=== PATIENT | male | born 1980 | race Caucasian/White ===

== ENCOUNTER 2023-12-23 17:39 | Observation (INO) | payer OTHER, BC, SELFPAY ==
[2023-12-23] VITALS (12 sets, daily range): BP systolic 116–155; BP diastolic 66–95; PULSE 83–111; RESP 14–22; TEMP 36.2–37.3; O2SAT 97–100; BMI 28.0; BMI 30.4
--- NOTE | 2023-12-23 | OP_ITS ---
OPERATION DATE: 12/23/2023 PREOPERATIVE DIAGNOSIS: Acute appendicitis. POSTOPERATIVE DIAGNOSIS: Gangrenous appendicitis with localized peritonitis. No abscess. PROCEDURE: Laparoscopic appendectomy. SURGEON: Pepe Martinez M.D. WINDOW TREATMENT INSTALLER: Shauna Hensley ANESTHESIA: General endotracheal. ESTIMATED BLOOD LOSS: Less than 15 mL. INDICATIONS AND CONSENT: Patient is a 43-year-old male with a 24 hour history of abdominal pain, localized into the right lower quadrant with right lower quadrant peritoneal signs, leukocytosis and CT scan with evidence of inflamed dilated appendix and fecalith. Indications, risks, benefits, alternatives of proceeding with laparoscopic appendectomy were explained extensively to the patient, including risks of bleeding, infection, bowel injury, appendiceal stump leak, blood clot, pulmonary embolus, heart attack, anesthetic complications, need for further surgery or open procedure. All of his questions were answered. Informed consent was obtained. PROCEDURE: Patient brought to the operating room, placed in the supine position. General anesthesia was induced. Lomeli catheter was inserted using sterile technique. The abdomen was prepped and draped in the usual sterile fashion. A supraumbilical incision was made with a scalpel blade and carried down through subcutaneous tissue using blunt dissection. The fascia was grasped and incised. Two 0 Vicryl stay sutures were placed on either side of the midline fascia. Urmila trocar was then inserted and secured using the stay sutures. The abdomen was then insufflated with carbon dioxide to a pressure of 15 mm/Hg. The scope was inserted and the abdomen was visualized. Patient was placed in the Trendelenburg position with the right side up. There was noted to be inflammation of the appendix with some exudate and free fluid in the right lower quadrant. No abscess. Two 5 mm ports were then placed; one in the left lower quadrant, one in the suprapubic area, both under direct visualization. The appendix was then mobilized. Using blunt dissection, a window was created at the base of the mesoappendix, in the avascular plane with the [place] grasper. An endoscopic stapler, purple, 45 mm length was then used to divide the appendix at its base. There was good hemostasis from the staple line. The mesoappendix was then divided with a reload of the vascular medium load, the gold load, 45 mm in length. The appendix was then brought out in an Endocatch bag through the supraumbilical port site. The fascia had to be slightly enlarged in order to remove the appendix. The abdomen was then copiously irrigated with 3 liters of saline until clear. The suture lines were inspected and noted to be hemostatic. All port sites were examined upon withdrawal of the ports. There was noted to be good hemostasis. The umbilical port site fascia was then closed with a 0 Vicryl figure of eight suture. All port sites were infiltrated with 0.5% Marcaine. The skin was then closed with interrupted 4-0 subcuticular Monocryl sutures and skin glue. Sterile pressure dressings were applied as well as an abdominal binder. Sponge and needle counts were correct x2 per nursing personnel. Patient tolerated the procedure well, was extubated and sent to recovery room in good condition. CC: Connie Samuel
--- NOTE | 2023-12-23 | HP_ITS ---
Date: 12/23/2023 CHIEF COMPLAINT: Abdominal pain. HISTORY OF PRESENT ILLNESS: Patient is a 43-year-old male with no known medical problems, who reports a 24 hour history of abdominal pain, kind of in the diffuse mid abdomen, worse with activities or movement. He does have some constipation/anorexia. Denies fevers, chills, night sweats. Has had no nausea or vomiting. No diarrhea. No dysuria, frequency, urgency or hematuria. He has been on no medications or rhki-ksk-cbajdti medications. He has had no previous abdominal surgery. Workup in the emergency room revealed leukocytosis with a white blood cell count of 21,000. Subsequently, underwent a CT scan of the abdomen and pelvis which revealed a dilated appendix with inflammatory stranding and fecalith. No evidence of free air or perforation. SOCIAL HISTORY: Patient does smoke tobacco daily. Denies illicit drug use. ALLERGIES: He has no known drug allergies. MEDICATIONS: On no medications or gzul-ldh-inweqiq medications. PAST SURGICAL HISTORY: Has had no previous surgical operations. FAMILY HISTORY: Noncontributory. REVIEW OF SYSTEMS: Ten system review of systems is negative for recent weight loss or weight gain. Denies increased fatigue or light-headedness. Has had no earache or tinnitus. No sinus congestion. No sore throat or hoarseness. No chest pain, palpitations or syncope. No chronic cough, shortness of breath or hemoptysis. No dysuria, frequency, urgency or hematuria. No headaches, seizures or tremors. No easy bruising or bleeding. No heat or cold intolerance. No polydipsia, polyphagia or polyuria. PHYSICAL EXAM: VITAL SIGNS: His temperature is 99.2. Blood pressure is 142/76. Pulse is 83 and regular. Respiratory rate is 18. O2 saturation is 97% on room air. GENERAL: In general, he is a well developed, well nourished male, in mild distress secondary to abdominal pain. HEENT: Normocephalic, atraumatic. Sclerae anicteric. Conjunctiva not injected. Oral mucosa is moist without lesions. NECK: Supple. There is no adenopathy, thyromegaly or JVD. LUNGS: Clear bilaterally. CARDIAC EXAM: Regular rhythm and rate without appreciable murmurs, rubs or gallops. ABDOMEN: Slightly distended. There are positive bowel sounds. It is tender in the right lower quadrant with right lower quadrant peritoneal signs. No masses, hepatosplenomegaly or hernias. No CVA tenderness. SKIN: Warm and dry without lesions, rashes or ulcers. NEURO EXAM: Non-focal. Non-lateralizing. Patient is awake, alert, oriented with appropriate affect. LABORATORY DATA: Electrolytes are unremarkable. He is mildly dehydrated with a BUN of 22 and a creatinine of 1.4. IMAGING: CT scan images were personally reviewed. ASSESSMENT: A 43-year-old male with 24 hour history of abdominal pain localized to the right lower quadrant with right lower quadrant peritoneal signs, leukocytosis and CT scan with dilated, inflamed appendix with a fecalith. PLAN: Indications, risks, benefits, alternatives of proceeding with laparoscopic appendectomy explained extensively to the patient, including risks of bleeding, infection, bowel injury, appendiceal stump leak, blood clot, pulmonary embolus, heart attack, anesthetic complications, need for further surgery or open procedure. All of his questions were answered, informed consent was obtained. CC: Patient?s family physician BENY
--- NOTE | 2023-12-23 18:37 | CT_ITS ---
The [address] [address] Patient Name: NEHA PALACIO MRN: [id number] date: 1980 Sex: M Assigned Patient Location: ER Current Patient Location: [facility] Accession/Order Number: [id number] Exam Date: 12/23/2023 19:00 Report Date: 12/23/2023 19:22 At the request of: STAS SIDDIQI Procedure: CT abdomen pelvis wo con EXAM: CT scan of the abdomen and pelvis without contrast. Dose reduction technique used: Automated exposure control and/or adjustment of the mA and/or kV according to patient size and/or use of iterative reconstruction technique. REASON FOR EXAM: abdominal pain COMPARISON: None FINDINGS: Enlarged appendix measuring up to 13 mm. Appendicolith. Prominent periappendiceal fat stranding and small amount of fluid. No periappendiceal extraluminal gas or fluid collections. Possible biliary sludge or cholelithiasis. Diffuse hepatic steatosis. No renal, ureteral or bladder calculi. No hydronephrosis. No free fluid in the abdomen or pelvis. No free intraperitoneal air. No dilated or thickened loops of small bowel or colon. Liver, pancreas, spleen, bilateral kidneys, and bilateral adrenal glands are otherwise unremarkable within the limitations of noncontrast CT. No lymphadenopathy in the abdomen or pelvis. Remainder unremarkable. CT/CT abdomen pelvis wo con IMPRESSION: 1. Acute appendicitis. 2. Diffuse hepatic steatosis. 3. Possible biliary sludge or cholelithiasis. Electronically authenticated by: KATH HEBERT Date: 12/23/2023 19:22
--- NOTE | 2023-12-23 18:38 | ED_ITS ---
HPI - Abdominal Pain General Chief Complaint: Abdominal Pain Stated Complaint: Constipation, Abdominal Pain Time Seen by Provider: 12/23/23 18:30 Source: patient Mode of arrival: walk-in Limitations: no limitations History of Present Illness HPI narrative: Abdominal pain started last night. Some nausea but no vomiting. Decreased BMs. Last BM was noon yesterday. No fever or chills. No diarrhea. No flank pain or ba ck pain. No prior abdominal surgeries. Has never been evaluated by GI. he had similar last year and diagnosed with constipation, given Miralax and it went away . Related Data Home Medications Medication Instructions Recorded Confirmed No Known Home Medications 12/23/23 12/23/23 Allergies Allergy/AdvReac Type Severity Reaction Status Date / Time No Known Drug Allergies Allergy Verified 12/23/23 17:45 PFSH PFSH Social History Smoking status: Heavy tobacco smoker Exam Narrative Exam Narrative: Nurses notes and vital signs reviewed and patient is not hypoxic. afebrile General: Well-appearing and in no apparent distress. Skin: Warm, dry, no pallor noted. No rash. Eye: Pupils are equal, round and EOMI. No scleral icterus. Ears, Nose, Mouth, and Throat: Oral mucosa is moist Cardiovascular: Regular Rate and Rhythm without murmur, gallop or rub. Respiratory: No accessory muscle use or respiratory distress. Lungs are clear to auscultation, no wheezing, rales or rhonchi Back: No CVA tenderness Musculoskeletal: normal ROM GI: Abdomen is soft, non-distended. Normal bowel sounds. No masses appreciated. Mild diffuse tenderness to palpation. No rebound, guarding, or rigidity noted. Neurological: A&O x4. No cranial nerve dysfunction observed. No truncal ataxia. Moves all extremities. Sensation intact. Psychiatric: Cooperative and interactive. Normal mood and affect. Constitutional Vital Signs, click to edit/add: Last Vital Signs Temp 97.9 F 12/23/23 17:41 Pulse 95 H 12/23/23 17:41 Resp 20 12/23/23 17:41 BP 155/95 H 12/23/23 17:41 Pulse Ox 98 12/23/23 17:41 O2 Del Method Room Air 12/23/23 17:41 Course Vital Signs Vital signs: Vital Signs Temperature 97.9 F 12/23/23 17:41 Pulse Rate 95 H 12/23/23 17:41 Respiratory Rate 20 12/23/23 17:41 Blood Pressure 155/95 H 12/23/23 17:41 Pulse Oximetry 98 12/23/23 17:41 Oxygen Delivery Method Room Air 12/23/23 17:41 Temperature 97.9 F 12/23/23 17:41 Pulse Rate 95 H 12/23/23 17:41 Respiratory Rate 20 12/23/23 17:41 Blood Pressure 155/95 H 12/23/23 17:41 Pulse Oximetry 98 12/23/23 17:41 Oxygen Delivery Method Room Air 12/23/23 17:41 MDM - Abdominal Pain MDM Narrative Medical decision making narrative: Peripheral IV established and blood drawn and sent for testing. The patient was ordered to receive IV Toradol and IV Zofran. He was also given normal saline IV fluid. CT scan of the abdomen pelvis obtained without contrast. Patient signed out to Dr Landon at 7pm shift change. She will review lab & radiographic results and determine disposition. Discharge Plan Discharge Chief Complaint: Abdominal Pain Clinical Impression: Abdominal pain Patient Disposition: Still a Patient Prescriptions / Home Meds: No Action No Known Home Medications Referrals: Anne-Marie Novoa MD [Primary Care Provider] - 1 week
[2023-12-23 18:48] LABS: Hemoglobin 15.1 g/dL (14.0-18.0); Mean Corpuscular HGB Conc 34.3 g/dL (29.9-35.2); Mean Corpuscular Hemoglobin 31.7 pg (25.9-34.0); Mean Corpuscular Volume 92.2 fL (80.0-94.0); Mean Platelet Volume 9.9 fL (9.5-13.5); Platelet Count 277 10^3/uL (150-450); Red Blood Count 4.77 10^6/uL (4.70-6.10); Red Cell Distribution Width 12.2 % (11.0-15.0); White Blood Count 21.4 10^3/uL (4.0-11.0)
[2023-12-23] MEDS: KETOROLAC TROMETHAMINE 30 MG/ML VIAL IVP (18:49)
[2023-12-23] MEDS: 0.9 % SODIUM CHLORIDE 1,000 ML 100 ML IV (18:49)
[2023-12-23] MEDS: ONDANSETRON PF 4 MG/2 ML VIAL IV (18:49)
[2023-12-23 19:05] LABS: Alanine Aminotransferase 47 U/L (16-63); Albumin Level 4.1 g/dL (3.4-5.0); Alkaline Phosphatase 64 U/L (46-116); Anion Gap 14.3; Aspartate Amino Transferase 18 U/L (15-37); BUN Creatinine Ratio 15.7; Calcium 9.3 mg/dL (8.5-10.1); Carbon Dioxide 27.7 mmol/L (21.0-32.0); Chloride 98 mmol/L (98-107); Estimated GFR (African America >60 (>=60); Estimated GFR (Non-African Ame 55 (>=60); Glucose 119 mg/dL (74-106); Sodium 136 mmol/L (136-145); Total Protein 8.1 g/dL (6.4-8.2)
[2023-12-23 19:13] LABS: Basophils Abs Manual 0.21 10^3/uL (0.00-0.10); Lymphocytes Absolute Manual 3.85 10^3/uL (1.20-3.80); Monocytes Absolute Manual 1.71 10^3/uL (0.30-0.80); Segmented Neut Absolute Manual 15.62 10^3/uL (1.4-6.5)
[2023-12-23 19:50] LABS: Lactate/Lactic Acid 1.5 mmol/L (0.4-2.0)
[2023-12-23] MEDS: PIPERACILLIN SODIUM/TAZOBACTAM 3.375 GM in 0.9 % SODIUM CHLORIDE 50 ML IV (20:02)
--- NOTE | 2023-12-23 20:31 | PC.NURSE ---
Surgeon at cart side.
[2023-12-23] MEDS: LACTATED RINGER'S SOLUTION 1,000 ML 50 ML IV (21:01)
[2023-12-23] MEDS: BUPIVACAINE HCL 0.5% PF 50 MG/10 ML VIAL 20 ML INJ (21:32)
--- NOTE | 2023-12-23 22:18 | PM.GSHP ---
History of Present Illness History of Present Illness Chief complaint: Constipation, Abdominal Pain, Acute Appendicitis PFSH PFSH Social History Smoking status: Heavy tobacco smoker Meds Home Medications and Allergies Home Medications Medication Instructions Recorded Confirmed Type No Known Home Medications 12/23/23 12/23/23 History Allergies Allergy/AdvReac Type Severity Reaction Status Date / Time No Known Drug Allergies Allergy Verified 12/23/23 17:45 Exam Constitutional Vital Signs, click to edit/add: Last Vital Signs Temp 97.1 F L 12/23/23 21:42 Pulse 98 H 12/23/23 22:12 Resp 16 12/23/23 22:12 BP 126/69 12/23/23 22:12 Pulse Ox 99 12/23/23 22:12 O2 Del Method Room Air 12/23/23 22:12 Assessment and Plan Assessment and Plan (1) Acute gangrenous appendicitis with localized peritonitis, without perforation: Plan H & P dictated; plan IV hydration, IV antibiotics; OR for LS appendectomy, possible open procedure, informed consent obtained. Urinary Catheter Management Urinary Catheter Management Urethral: Cath placed during this visit: no
[2023-12-23] MEDS: LACTATED RINGER'S SOLUTION 1,000 ML 150 ML IV (23:19)
[2023-12-23] MEDS: HYDROCODONE/ACET 5-325 MG TABLET 1 TAB PO (23:20)
[2023-12-23] MEDS: PANTOPRAZOLE SODIUM 40 MG VIAL IV (23:20)
[2023-12-24] MEDS: KETOROLAC TROMETHAMINE 30 MG/ML VIAL IVP (00:48)
[2023-12-24 03:00] VITALS: PULSE 82; RESP 18
[2023-12-24 04:00] VITALS: BP 116/74; PULSE 84; RESP 16; TEMP 37; O2SAT 99
[2023-12-24] MEDS: PIPERACILLIN SODIUM/TAZOBACTAM 3.375 GM in 0.9 % SODIUM CHLORIDE 50 ML IV (04:01)
[2023-12-24 04:53] LABS: Basophils Absolute Auto 0.1 10^3/uL (0.0-0.1); Basophils Percent Auto 0.3 % (0.2-2.0); Eosinophils Absolute Auto 0.1 10^3/uL (0.0-0.7); Eosinophils Percent Auto 0.5 % (0.9-7.0); Hematocrit 37.8 % (42.0-54.0); Hemoglobin 12.6 g/dL (14.0-18.0); Immature Granulocytes Abs Auto 0.05 10^3/uL (0.00-0.03); Immature Granulocytes Pct Auto 0.3 % (0.0-0.5); Lymphocytes Absolute Auto 1.9 10^3/uL (1.2-3.8); Lymphocytes Percent Auto 12.1 % (20.5-60.0); Mean Corpuscular HGB Conc 33.3 g/dL (29.9-35.2); Mean Corpuscular Volume 95.9 fL (80.0-94.0); Mean Platelet Volume 10.5 fL (9.5-13.5); Monocytes Absolute Auto 1.3 10^3/uL (0.3-0.8); Monocytes Percent Auto 8.2 % (1.7-12.0); Neutrophils Absolute Auto 12.1 10^3/uL (1.4-6.5); Neutrophils Percent Auto 78.6 % (43.0-75.0); Platelet Count 229 10^3/uL (150-450); Red Blood Count 3.94 10^6/uL (4.70-6.10); Red Cell Distribution Width 12.3 % (11.0-15.0); White Blood Count 15.4 10^3/uL (4.0-11.0)
[2023-12-24 04:58] LABS: Anion Gap 11.9; BUN Creatinine Ratio 16.8; Calcium 8.2 mg/dL (8.5-10.1); Carbon Dioxide 25.7 mmol/L (21.0-32.0); Chloride 104 mmol/L (98-107); Estimated GFR (African America >60 (>=60); Estimated GFR (Non-African Ame >60 (>=60); Glucose 109 mg/dL (74-106); Potassium 3.6 mmol/L (3.5-5.1); Sodium 138 mmol/L (136-145)
[2023-12-24 07:00] VITALS: RESP 20
--- NOTE | 2023-12-24 07:04 | PM.GSPN ---
Progress Note: A&P Assessment and Plan (1) Acute gangrenous appendicitis with localized peritonitis, without perforation: Assessment and Plan: doing well, wbc decreased, h/h stable; lytes stable Plan advance to regular diet, ibuprofen as needed for pain; discharge to home if tolerating diet and pain controlled; Augmentin for 4 days; follow up next week call sooner if problems/questions. Subjective Subjective Interval history: POD # 1 s/p LS appendectomy; pain controlled, no N/V, voiding well, tolerating liquids Exam Narrative Exam Narrative: abd: soft, minimally distended; normal bs, incisions without erythema or drainage, no ecchymoses Constitutional Vital Signs, click to edit/add: Last Vital Signs Temp 98.6 F 12/24/23 04:00 Pulse 84 12/24/23 04:00 Resp 16 12/24/23 04:00 BP 116/74 12/24/23 04:00 Pulse Ox 99 12/24/23 04:00 O2 Del Method Room Air 12/24/23 04:00 Chest Other: CTA Urinary Catheter Management Urinary Catheter Management Urethral: Cath placed during this visit: no
[2023-12-24 08:00] VITALS: RESP 14; TEMP 38.3
[2023-12-24 09:56] VITALS: TEMP 37.8
--- NOTE | 2023-12-28 14:37 | CM.DCFOLLOWU ---
Person spoke with: patient How are you feeling? well How is your pain? none Did you understand your discharge instructions? yes Do you have any questions about your discharge instructions? no Were you given any prescriptions at discharge? yes Were you able to get your prescriptions filled? yes Do you understand how to take your medications as ordered? yes Do you have any questions about your follow up appointment and do you plan to keep your follow up appointment? no questions, changed follow up with Dr. Martinez to tomorrow 12/29/23 Is there anything else that you would like to discuss? no Questions/Comments/Concerns/Other: N/A
== END 2023-12-24 10:28 | disposition home or self-care (01) ==
LOC: ER 19:22 → SURGOUT 20:44 → ICU 22:39
PROVIDERS: Emergency Medicine; Admitting Provider Surgery; Emergency Provider Emergency Medicine; PCP Family Medicine; Visit Provider Surgery
PROC: (CPT 840; principal; 2023-12-23 18:30)
DX: K35.31 Acute appendicitis with localized peritonitis and gangrene, without perforation (principal); F17.210 Nicotine dependence, cigarettes, uncomplicated
CPT/HCPCS: 44970; 36415; 74176; 80048; 80053; 83605; 83690; 85007; 85025; 85027; 88304; 94761; 96365; 96375; 99285; G0378; J0131; J0330; J0360; J0665; J1885; J2405; J2543; J2704; J3010

== ENCOUNTER 2024-03-01 13:56 | Outpatient (OUT) | payer OTHER, BC, SELFPAY | END 2024-03-01 13:57 | disposition home or self-care (01) | LOC: PST 13:56 | PROVIDERS: PCP Family Medicine; Visit Provider Surgery | DX: Z01.818 Encounter for other preprocedural examination (principal); L72.0 Epidermal cyst; L72.3 Sebaceous cyst ==

== ENCOUNTER 2024-03-02 09:39 | Day surgery (SDC) | payer OTHER, BC, SELFPAY ==
--- NOTE | 2024-03-02 | OP_ITS ---
OPERATION DATE: 03/02/2024 PREOPERATIVE DIAGNOSIS: Enlarging cysts of the right cheek, right supraclavicular area, right posterior neck as well as the left axilla. POSTOPERATIVE DIAGNOSIS: Enlarging epidermal cysts of the right cheek, right supraclavicular area, right posterior neck as well as the left axillary lipoma. PROCEDURE: Excisional biopsy epidermal cyst right cheek, right supraclavicular area, right posterior neck and excisional biopsy of a deep lipoma left axilla. SURGEON: Pepe Martinez M.D. ANESTHESIA: Local with 0.25% Marcaine plain. ESTIMATED BLOOD LOSS: Less than 7 mL. INDICATIONS AND CONSENT: Patient is a 44-year-old male with a long history of enlarging subcutaneous lesions of the left axillary area, right cheek, right supraclavicular area and right posterior neck. None have been infected. They continue to increase in size. They are not painful. Indications, risks, benefits, alternatives of proceeding with excisional biopsy under local anesthesia were explained extensively to the patient, including risks of bleeding, infection, scarring, pain, recurrence, need for further surgery, anesthetic complications. All of his questions were answered. Informed consent was obtained. PROCEDURE: Patient brought to the procedure room, placed in the supine position. The right cheek and supraclavicular lesions were prepped and draped in the usual sterile fashion. They were anesthetized with 0.25% Marcaine. The right cheek lesion was excised in elliptical fashion down to subcutaneous fat. The central pore was incorporated. A 2.5 cm epidermal cyst was dissected out and sent off to Pathology. Wound was irrigated. The subcutaneous tissue was re-approximated with interrupted 4-0 Monocryl sutures. The skin was then closed with interrupted 5-0 nylon sutures. A small amount of antibiotic ointment was applied. The right supraclavicular lesion was excised in elliptical fashion as well and cyst was dissected out. It was approximately 1 cm in diameter. It was sent off to Pathology. Incision was closed with 4-0 Monocryl subcutaneous sutures and 4-0 Monocryl subcuticular suture. The right posterior neck cyst was anesthetized and excised in identical fashion. It was noted to be approximately a 2 cm epidermal cyst. The wound was irrigated. The subcutaneous tissue was re-approximated with interrupted 3-0 Monocryl. The skin was then closed with 4- 0 nylon mattress and simple sutures with good hemostasis. A small amount of antibiotic ointment was to that incision. The patient was then placed in the right lateral decubitus position. The axillary lesion was prepped and draped in the usual sterile fashion. It was anesthetized with 0.5% Marcaine. Incision was made in the skin crease, perpendicular to the long axis of the lesion and carried down through subcutaneous tissues with sharp dissection as well as some needle tip electrocautery. There was noted to be a deep lipoma submuscular that was carefully dissected out and sent off to Pathology. The wound was irrigated. Subcutaneous tissues were re-approximated with interrupted 3-0 Monocryl suture. Skin was closed with a running 4-0 subcuticular Monocryl suture and skin glue. Lipoma was approximately 2 cm in greatest diameter. A sterile pressure dressing was applied. Skin glue was applied to the supraclavicular incision as well as a sterile dressing. The patient tolerated procedure well, was sent to recovery area in good condition, then discharged to home. CC: Connie Samuel
[2024-03-02 10:02] VITALS: BP 126/95; PULSE 87; TEMP 36.2; O2SAT 98
--- OUTSIDE RECORDS SUMMARY | 2024-03-02 10:02 | XMS_ITS | CCD ---
Author Organization [facility] Care Team Providers Care Shuttle Final Inspector Name Role Phone Melinda Gordillo Unavailable Anne-Marie Araiza Unavailable Casandra Morris Unavailable MD Anne-Marie Araiza Primary Care Provider MD Neha Martinez Attending Provider Anne-Marie Araiza Primary Care Unavailable Neha Martinez Attending Unavailable Neha Martinez Admitting Unavailable ANNE-MARIE ARAIZA Primary Care Physician Neha MARTINEZ Attending Unavailable VICK BOCANEGRA Referring Unavailable NILLNeha Attending Unavailable Neha MARTINEZ Attending Unavailable ANNE-MARIE ARAIZA Referring Unavailable Allergies Allergy Classification Reported Allergen(s) Allergy Type Date of Onset Reaction(s) Facility (1 source) patient allergy list reviewed by nurse or physicia Propensity to adverse reactions 7 Comment:Done [facility] Other (1 source) Allergies Reconciled Propensity to adverse reactions Unknown [facility] Other (1 source) No Known Medication Allergies; Translations: [No Known Medication Allergies] Propensity to adverse reactions (disorder) [facility] Medications Current Medications Medication Drug Class(es) Dates Sig (Normalized) Sig (Original) cyclobenzaprine hydrochloride 10 mg oral tablet (2 sources) Muscle Relaxant Start: 3 take 1 tablet by mouth every twenty-four hours Cyclobenzaprine HCl 10 MG 1 tablet at bedtime as needed Orally Once a day for 10 days Jan, Active methylPREDNISolone 4 mg oral tablet (2 sources) Corticosteroid Start: 3 methylPREDNISolone 4 MG as directed Orally for daily dose take half with breakfast, half with dinner for 6 days Jan, Active Completed/Discontinued Medications Medication Drug Class(es) Dates Sig (Normalized) Sig (Original) predniSONE 20 mg oral tablet (2 sources) Start: 01-07-2024 End: 01-07-2024 take 1 tablet by mouth twice daily Prednisone Discontinued 1 TAB PO Twice daily January 07, 2024 12:00am January 07, 2024 1:45pm [facility] tablet Orally bid; Note: Source Status: Start; Refills: 0; Qty: 10 Tablet; Provider: Alexandra Alcantara Start: 06-19-2023 take 1 tablet by shmuel th every twelve hours predniSONE 20 MG 1 tablet Orally bid for 5 day(s) Jun, Active triamcinolone acetonide 40 mg/ml injectable suspension (1 source) Corticosteroid Start: 06-19-2023 Kenalog-40 Jun, 40 mg Problems Active Problems Problem Classification Problem Date Documented Da te Episodic/Chronic Allergic reactions (1 source) Unspecified contact dermatitis, unspecified cause Episodic Appendicitis and other appendiceal conditions (5 sources) Acute appendicitis with localized peritonitis; Translations: [Acute appendicitis with localized peritonitis and gangrene, without perforation] Onset: 12-29-2023 Episodic Disorders of teeth and jaw (1 source) Periapical abscess without sinus tract; Translations: [Periapical abscess without sinus] Episodic Immunizations and screening for infectious disease (1 source) Vaccination given; Translations: [Encounter for immunization] Episodic Other circulatory disease (1 source) Elevated blood-pressure reading without diagnosis of hypertension; Translations: [Elevated blood-pressure reading, without diagnosis of hypertension] Episodic Other gastrointestinal disorders (3 sources) Irritable bowel syndrome characterized by constipation; Translations: [Irritable bowel syndrome with constipation] 12-25-2023 Chronic Other nutritional; endocrine; and metabolic disorders (1 source) Body mass index 25-29 - overweight; Translations: [Body mass index (BMI) 27.0-27.9, adult] Episodic Other nutritional; endocrine; and metabolic disorders (1 source) Overweight 01-19-2024 Episodic Other nutritional; endocrine; and metabolic disorders (1 source) Overweight in adulthood with body mass index of 25 or more but less than 30 01-19-2024 Episodic Other skin disorders (1 source) Localized swelling, mass and lump, left upper limb; Translations: [Localized swelling, mass and lump, left upper limb] Episodic Other skin disorders (2 sources) Epidermoid cyst of skin of face 09-07-2020 Episodic Other skin disorders (2 sources) Epidermoid cyst of skin of neck 09-07-2020 Episodic Other skin disorders (3 sources) Epidermoid cyst; Translations: [Epidermal cyst] Onset: 01-19-2024 Episodic Other skin disorders (1 source) Sebaceous cyst of skin; Translations: [Sebaceous cyst] Onset: 01-19-2024 Episodic Other skin disorders (1 source) Epidermoid cyst of skin 01-19-2024 Episodic Residual codes; unclassified (6 sources) Tobacco user; Translations: [Cigarette nicotine dependence] Onset: 05-05-2019 09-04-2020 Episodic Spondylosis; intervertebral disc disorders; other back problems (2 sources) Muscle spasm of back Episodic Unclassified (2 sources) Sebaceous cyst of skin 09-07-2020 Past or Other Problems Problem Classification Problem Date Documented Da te Episodic/Chronic Other skin disorders (1 source) Sebaceous cyst; Translations: [Sebaceous cyst] Onset: 05-05-2019 Episodic Results Test Name Value Interpretation Reference Range Facil ity Consent for Procedure/Surger yon 01-21-2024 Consent for Procedure/Surgery [id number] .00TIFF [facility] Facesheeton 01-20-2024 Facesheet [id number]#1. 00TIFF [facility] Ambulatory Visit Summaryon 0 01-19-2024 Ambulatory Visit Summary NEHA GOMEZ :1980 Visit Date:01/19/2024 Ambulatory Visit Instructions Your Care Team Attending Physician - TATI MITCHELL, Neha Howard Primary Care Physician - TEODORA MITCHELL, ANNE-MARIE Referring Physician - ANNE-MARIE ARAIZA MD Procedures Performed Laparoscopic appendectomy (12/23/2023). Discharge Vitals Heart Rate (Peripheral) 80 Respiratory Rate 16 Blood Pressure 120/92 Height 182.88 cm Height 72 in Weight 95 kg Weight 209 lb BMI 28.4 Medications and Immunizations Administered Not Given influenza virus vaccine, inactivated, Patient Refuses Allergies No Known Allergies No Known Medication Allergies Problems Ongoing - Any problem that you are currently receiving treatment for. Acute gangrenous appendicitis Acute gangrenous appendicitis with localized peritonitis, without perforation BMI 28.0-28.9,adult Epidermal cyst of face Epidermal cyst of neck Irritable bowel syndrome characterized by constipation Overweight Sebaceous cyst of left axilla Tobacco user Patient Survey You may receive a survey via text or e-mail asking about your office visit. Please share your experience with us by completing your survey. We appreciate your feedback and thank you for choosing us for your care. [facility] Physician Referralon 024 Physician Referral [id number] .00TIFF [facility] Pathology Noteon 12-31-2023 Pathology Note [id number] .00TIFF [facility] Formson 12-30-2023 Forms [id number] .00TIFF [facility] Forms [id number] .00TIFF [facility] Ambulatory Visit Summaryon 0 12-29-2023 Ambulatory Visit Summary NEHA GOMEZ :1980 Visit Date:12/29/2023 Ambulatory Visit Instructions Your Diagnosis Acute gangrenous appendicitis with localized peritonitis, without perforation Your Care Team Attending Physician - TATI MITCHELL, Neha Howard Primary Care Physician - ANNE-MARIE ARAIZA MD Procedures Performed Laparoscopic appendectomy (12/23/2023). Allergies No Known Allergies No Known Medication Allergies Problems Ongoing - Any problem that you are currently receiving treatment for. Acute gangrenous appendicitis Acute gangrenous appendicitis with localized peritonitis, without perforation Epidermal cyst of face Epidermal cyst of neck Irritable bowel syndrome characterized by constipation Sebaceous cyst of left axilla Tobacco user Patient Survey You may receive a survey via text or e-mail asking about your office visit. Please share your experience with us by completing your survey. We appreciate your feedback and thank you for choosing us for your care. [facility] General Surgery Office/Clini c Noteon 12-29-2023 General Surgery Office/Clinic Note Chief Complaint post operative follow up HPI Staff 6 day post operative follow up post lap appendectomy completed [id number] at [facility]. Denies discomfort, taking Ibuprofen 600mg 1-2 times daily. Denies bleeding or drainage. Bowels moving well. Wearing abdominal binder. History of Present Illness 6 day s/p LS appendectomy for acute gangrenous appendicitis; doing well, mild soreness controlled with ibuprofen; no fevers, no N/V, no drainage from incisions; completed course of antibiotics; wearing abd binder. pathology with acute appendicitis. Review of Systems PHQ Score Initial Depression Screen Score: 0 SCORE ROS - Provider Constitutional: no fever, no sweats, no weight loss. Eyes: no glasses, no blurred vision, no visual loss. ENMT: no dentures, no hoarseness, no swallowing difficulties, no hearing loss, no ear infection(s), no nose bleeds. Cardiovascular: normal blood pressure, no chest pain, regular heartbeat, no heart murmur. Respiratory: no shortness of breath, no cough, no asthma, no wheezing. Gastrointestinal: no nausea, no vomiting, no diarrhea, no constipation, no blood in stool, no change in bowel habits, no abdominal pain, no hepatitis. Genitourinary: no kidney stones, no urine infection, no dysuria. Musculoskeletal: no pain, no weakness. Skin: no changing moles, no rash, no skin lumps. Neurologic: no seizures, no epilepsy, no headache. Psychiatric: no emotional or psychiatric problem. Heme/Lymph: no bleeding problems, no anemia, no blood clots, no transfusions. Allergy/Immunologic: no swollen lymph nodes/glands, no IV drug abuse. Other: Additional ROS info: Except as noted in the above Review of Systems and in the History of Present Illness, all other systems have been reviewed and are negative or noncontributory. Physical Exam abd: soft, normal bs, nontender, nondistended, incisions without erythema or drainage, minimal ecchymosis. Assessment/Plan 1. Acute gangrenous appendicitis with localized peritonitis, without perforation (K35.31: Acute appendicitis with localized peritonitis and gangrene, without perforation) doing well, continue no lifting > 10 lbs for 3 weeks; ok to return to work 01/25/24; call with problems/questions. Follow-up With When Contact Information Neha MARTINEZ MD, DEBORAH Only if needed [address] [place] [address]- Additional Instructions: Problem List/Past Medical History Ongoing Acute gangrenous appendicitis Acute gangrenous appendicitis with localized peritonitis, without perforation Epidermal cyst of face Epidermal cyst of neck Irritable bowel syndrome characterized by constipation Sebaceous cyst of left axilla Tobacco user Historical No qualifying data Procedure/Surgical History Laparoscopic appendectomy (12/23/2023). Medications No active medications Allergies No Known Allergies No Known Medication Allergies Social History Alcohol Current, Beer, Daily, 12/29/2023 Substance Abuse - Denies Substance Abuse, 09/04/2020 Tobacco Former smoker, quit more than 30 days ago Tobacco Use:. Smokeless tobacco user within last 30 days Smokeless Tobacco Use:. Cigarettes, Vaping, 1 per day. Started age 18.0 Years. Yes, 12/29/2023 Family History Family history is negative [facility] Comment on above: Result Comment: Elec tronically Signed By: Neha MARTINEZ MD\.br\Date and Time Signed: 12/29/23 13:32 EST Pathology Noteon 12-29-2023 Pathology Note [id number] .00TIFF [facility] Operative Reporton Operative Report [id number] .00TIFF [facility] Consultation Noteon 12-24-19 Consultation Note [id number] .00TIFF [facility] Lab Reportson 12-24-2023 Lab Reports [id number] .00TIFF [facility] William 12-23-2023 L Specimen: [id number] Received: 12/24/23-1257 Status: SANDRA Helmsyohannes Num: [id number] Spec Type: Surgical Subm Dr: Neha Martinez MD FACS Tissues: A Appendix - Other than Incidental (APPENDIX) Procedures: HE/2, Gross/Micro L3 Age/ Patient Sex Location Account Attending Physician Neha Gomez 43/M [facility] [id number] Neha Martinez MD FACS SPEC NUM: [id number] RECD: 12/24/23 STATUS: SANDRA PIZARRO NUM: [id number] NATHALIE: 12/23/23 [facility] DR: Neha Martinez MD FACS ENTERED: 12/24/[address] [facility] [address]: [facility],Lab SPEC TYPE: Surgical DEPT: EDDIE CABRERA ORDERED: HE/2, Gross/Micro L3 ORDERED: HE/2, Gross/Micro L3 Pathological Diagnosis Appendix, Appendectomy: Acute Appendicitis. Clinical Information Acute appendicitis Gross Description Received in formalin labeled with the patient's name, date of and appendix is a 5.3 x 1.0 x 1.0 cm vermiform appendix with attached mesoappendix measuring up to 2.8 cm. The serosa is dusky, lópez-el with el-white fibrous adhesions.. The average wall thickness is 0.3 cm. The lumen measures up to 0.5 cm in diameter and contains a 1.0 cm brown fecalith in the distal tip. The mucosa is lópez, focally hyperemic. No discrete site of perforation is identified. The resection margin is inked. [employer] sections are submitted in two cassettes labeled A1-A2. CPT Codes 72364 -------- -------- Specimen: [id number] Received: 12/24/23 Status: SANDRA Helmsyohannes Num: [id number] Spec Type: Surgical Subm Dr: Neha Martinez MD FACS Tissues: A Appendix - Other than Incidental (APPENDIX) Procedures: HE/2, Gross/Micro L3 -------- Patient: PatriciaNeha [id number] (Continued) -------- Signed (signature on file) Jerica Youssef MD 12/26/23 1018 [facility] Vital Signs Date Time Vital Sign Value Performing Clinician Facility 01-19-2024 13:54-0500 Blood Pressure Location Neha MARTINEZ [facility] [place] 01-19-2024 13:54-0500 Diastolic blood pressure 92 mm[Hg] Neha MARTINEZ [facility] [place] 01-19-2024 13:54-0500 Heart rate 80 /min Neha MARTINEZ [facility] [place] 01-19-2024 13:54-0500 Respiratory rate 16 /min Neha MARTINEZ [facility] [place] 01-19-2024 13:54-0500 Systolic blood pressure 120 mm[Hg] Neha MARTINEZ [facility] [place] 01-07-2024 13:37-0500 Body height 180.34 cm MD Anne-Marie Araiza Work Phone: [facility] 01-07-2024 13:37-0500 Body mass index (BMI) [Ratio] 28.5 kg/m2 MD Anne-Marie Araiza Work Phone: [facility] 01-07-2024 13:37-0500 Body weight 92.64 kg MD Anne-Marie Araiza Work Phone: [facility] 01-07-2024 13:37-0500 Diastolic blood pressure 85 mm[Hg] MD Anne-Marie Araiza Work Phone: [facility] 01-07-2024 13:37-0500 Heart rate 85 /min MD Anne-Marie Araiza Work Phone: [facility] 01-07-2024 13:37-0500 Systolic blood pressure 123 mm[Hg] MD Anne-Marie Araiza Work Phone: [facility] 06-19-2023 10:55-0400 Body height 180.34 cm Casandra Alexandra Other [facility] Other 06-19-2023 10:55-0400 Body mass index (BMI) [Ratio] 28.23 kg/m2 Casandra Alexandra Other [facility] Other 06-19-2023 10:55-0400 Body temperature 97.8 [degF] Casandra Alexandra Other [facility] Other 06-19-2023 10:55-0400 Body weight 91.81 kg Casandra Alexandra Other [facility] Other 06-19-2023 10:55-0400 Respiratory rate 18 /min Casandra Alexandra Other [facility] Other 06-19-2023 10:55-0400 SaO2% (BldA) [Mass fraction] 97 % Casandra Alexandra Other [facility] Other 01-16-2023 11:00-0500 Body height 180.34 cm Melinda Gordillo Other [facility] Other 01-16-2023 11:00-0500 Body mass index (BMI) [Ratio] 28.59 kg/m2 Melinda Gordillo Other [facility] Other 01-16-2023 11:00-0500 Body temperature 98.4 [degF] Melinda Gordillo Other [facility] Other 01-16-2023 11:00-0500 Body weight 92.99 kg Melinda Gordillo Other [facility] Other 01-16-2023 11:00-0500 Diastolic blood pressure 89 mm[Hg] Melinda Gordillo Other [facility] Other 01-16-2023 11:00-0500 Respiratory rate 18 /min Melinda Gordillo Other [facility] Other 01-16-2023 11:00-0500 SaO2% (BldA) [Mass fraction] 98 % Melinda Gordillo Other [facility] Other 01-16-2023 11:00-0500 Systolic blood pressure 141 mm[Hg] Melinda Gordillo Other [facility] Other Encounters Encounter Date Encounter Type Care Provider Facility Start: 01-19-2024 End: 01-20-2024 ambulatory Neha MARTINEZ [facility] Start: 01-19-2024 End: 01-19-2024 Patient encounter procedure Neha MARTINEZ [facility] Start: 01-07-2024 End: 01-07-2024 ambulatory MD Anne-Marie Araiza Work Phone: [facility] Work Phone: Start: 01-07-2024 End: 01-07-2024 Patient encounter procedure MD Anne-Marie Araiza Work Phone: [facility] Work Phone: Start: 12-29-2023 End: 12-30-2023 ambulatory Neha R NILL Facility: [facility] Start: 12-29-2023 End: 12-29-2023 Patient encounter procedure Neha R NILL General Surgery Nill/Said [place] Start: 12-23-2023 End: 12-23-2023 ambulatory Anne-Marie Araiza Facility:[facility] Start: 12-23-2023 End: 12-23-2023 Departed Referred MD Anne-Marie Araiza Work Phone: [facility] Start: 12-23-2023 End: 12-24-2023 ambulatory MD Anne-Marie Araiza Work Phone: [facility] Work Phone: Start: 06-19-2023 End: 06-19-2023 ambulatory Casandra Morris Other [facility] Other Start: 06-19-2023 Office outpatient vi sit 15 minutes Casandra Morris [facility] Start: 01-29-2023 (Televisit) Televisit Anne-Marie Hernandez [facility] Start: 01-29-2023 End: 01-29-2023 ambulatory Anne-Marie Araiza Other [facility] Other Start: 01-16-2023 End: 01-16-2023 ambulatory Melinda Gordillo Other [facility] Other Start: 01-16-2023 Office outpatient vi sit 25 minutes Melinda Gordillo [facility] Start: 05-13-2022 Adult health examination Casandra Morris Other [facility] Other Procedures Date Procedure Procedure Detail Performing Clinician Start: 12-23-2023 Laparoscopic appendectomy Neha MARTINEZ Start: 06-08-2017 General examination of patient Casandra Morris Other Immunizations Immunization Date Immunization Notes Care Provider Fa cility 05-13-2022 tetanus and diphther ia toxoids, adsorbed, preservative free, for adult use (5 Lf of tetanus toxoid and 2 Lf of diphtheria toxoid) Casandra Morris Other [facility] NEGATED: Highlighted row has not occurred!01-19-2024 influenza virus vaccine, unspecified formulation Neha MARTINEZ General [facility] Payers Date Payer Category Payer [facility] [id number] 2023 Self-pay 2019 Unknown [id number] 1980 Unknown [id number] 1980 Unknown [id number] 1980 Unknown [id number] Social History Date Type Detail Facility Sex Assigned At [facility] Start: 1980 Sex Assigned At Male F [facility] Start: 12-29-2023 End: 01-19-2024 Tobacco smoking status Ex-smoker (finding) [facility] Tobacco smoking status Smokeless tobacco user within last 30 days [facility] [place] Functional Status Date Assessment Result Facility 01-19-2024 Functional Status N/A [facility] 12-29-2023 Functional Status N/A [facility] Clinical Notes 01-16-2023 to 01-19-2024 Note Date & Type Note Facility 01-19-2024 Note Chief Complaint consultation for sebaceous cysts HPI Staff 43 year old male presents on consultation from Dr. Araiza for multiple sebaceous cyst. Reports cysts to right cheek, left back, right occipital scalp and right neck. Previous evaluation by this office 08/2020-patient declined to schedule at that time. Right neck cyst is new since last eval. Denies changes in other cysts since last eval. History of Present Illness 43 yo male with h/o multiple epidermal cysts; initially seen 08/2020, but declined to schedule at that time; no episodes of infection, no drainage; some increase in size, no episodes of infection, no drainage; no asa or NSAID use; vapes daily. Review of Systems PHQ Score Initial Depression Screen Score: 0 SCORE ROS - Provider Constitutional: no fever, no sweats, no weight loss. Eyes: no glasses, no blurred vision, no visual loss. ENMT: no dentures, no hoarseness, no swallowing difficulties, no hearing loss, no ear infection(s), no nose bleeds. Cardiovascular: normal blood pressure, no chest pain, regular heartbeat, no heart murmur. Respiratory: no shortness of breath, no cough, no asthma, no wheezing. Gastrointestinal: no nausea, no vomiting, no diarrhea, no constipation, no blood in stool, no change in bowel habits, no abdominal pain, no hepatitis. Genitourinary: no kidney stones, no urine infection, no dysuria. Musculoskeletal: no pain, no weakness. Skin: no changing moles, no rash, yes skin lumps. Neurologic: no seizures, no epilepsy, no headache. Psychiatric: no emotional or psychiatric problem. Heme/Lymph: no bleeding problems, no anemia, no blood clots, no transfusions. Allergy/Immunologic: no swollen lymph nodes/glands, no IV drug abuse. Other: Additional ROS info: Except as noted in the above Review of Systems and in the History of Present Illness, all other systems have been reviewed and are negative or noncontributory. Physical Exam Vitals & Measurements HR: 80(Peripheral) RR: 16 BP: 120/92 HT: 72 in HT: 182.88 cm WT: 95 kg WT: 209 lb BMI: 28.4 HEENT: normal conjunctiva, sclera clear, no scleral icterus, EOM intact, PERRLA, oral mucosa moist without lesions. Neck: trachea midline, no mass, symmetric, no thyromegaly or nodules, no adenopathy Respiratory: lungs CTA, respirations non labored. Cardiovascular: regular rate and rhythm, no murmur, no pedal edema or varicosities. Gastrointestinal: soft, non distended, no tenderness, incisions well-healed no masses, no palpable hernias, diastasis recti no, no hepatosplenomegaly; normal bs Lymphatic: no cervical adenopathy, no axillary adenopathy, nosupraclavicular adenopathy. Musculoskeletal: normal gait, digits and nails without infection, nodes, cyanosis, clubbing. Skin: no rashes, no lesions, no ulcers, 1.5 cm cyst right check, nontender, mobile, no skin changes, right occiptal scalp with 1.5 cm cyst, mobile, soft; right anterior chest with 7 mm epidermal cyst; no drainage or erythema; left axilla with 2.5 cm subcutaneous mass, soft, no skin changes or pore; nontender. Psychiatric/Neuro: oriented to time, place, person, judgement normal, affect appropriate for age, insight intact, no focal deficits. Tests: , review of old records completed , Discussed surgical options, risks, and possible complications with patient. Assessment/Plan 1. Epidermal cyst of face, (L72.0: Epidermal cyst)Epidermal cyst of neck, (L72.0: Epidermal cyst)Epidermal cyst plan excisional biopsy under local anesthesia at [facility] for definitive diagnosis and treatment, informed consent obtained. 3. Sebaceous cyst of left axilla (L72.3: Sebaceous cyst) see # 1 Follow-up No qualifying data available Problem List/Past Medical History Ongoing Acute gangrenous appendicitis Acute gangrenous appendicitis with localized peritonitis, without perforation BMI 28.0-28.9,adult Epidermal cyst Epidermal cyst of face Epidermal cyst of neck Irritable bowel syndrome characterized by constipation Overweight Sebaceous cyst of left axilla Tobacco user Historical No qualifying data Procedure/Surgical History Laparoscopic appendectomy (12/23/2023). Medications No active medications Allergies No Known Allergies No Known Medication Allergies Social History Alcohol Current, Beer, Daily, 12/29/2023 Substance Abuse - Denies Substance Abuse, 09/04/2020 Tobacco Former smoker, quit more than 30 days ago Tobacco Use:. Smokeless tobacco user within last 30 days Smokeless Tobacco Use:. Cigarettes, Vaping, 1 per day. Started age 18.0 Years. Yes, 01/19/2024 Family History Family history is negative Immunizations Vaccine Date Status Comments influenza virus vaccine, inactivated - Not Given [facility] Comment on above: Result Comment: Elec tronically Signed By: TATI MITCHELL, Neha Howard\.br\Date and Time Signed: 01/19/24 14:24 EST 12-25-2023 Note [id number] [facility] 12-24-2023 Hospital Discharge instructions Follow Up Care 12/24/2023 11:02:01 With:TATI MITCHELL, DEBORAH Guzman Address: [address] [place], [place] [id number]- When: only if needed General Surgery [facility] 12-24-2023 Note [id number] [facility] 06-19-2023 Evaluation note Encounter Date Diagnosis Assessment Notes Jun, Contact dermatitis, unspecified contact dermatitis type, unspecified trigger (ICD-10 - L25.9) Plenty fluids, get plenty of rest. Take the prednisone as prescribed until gone starting tomorrow. You may take Benadryl as needed for itching. Wash your bedding in your clothing every day for the next couple of days. Follow-up with your family physician if no improvement in 2 to 3-day Jun, Other Contact dermatitis home care material was printed, Contact dermatitis home care material was printed [facility] Other 03-16-2023 Evaluation note* Encounter Date Diagnosis Assessment Notes Treatment Notes Treatment Clinical Notes Jan, Lumbar paraspinal muscle spasm (ICD-10 - M62.830) Discussed future options of PT, chiropractor or xrays. [facility] Other 03-03-2023 Evaluation note* Encounter Date Diagnosis Assessment Notes Treatment Notes Treatment Clinical Notes Jan, Muscle spasm of back (ICD-10 - M62.830) Discussed diagnosis with patient. Advised patient to take medications as directed. Use muscle relaxer at night time as it may cause drowsiness. May use OTC Tylenol and icy hot application for additional relief.Use steroid as directed. Encouraged warm compresses, light stretches, and massage may also help with pain. Avoid strenuous activity, perform activity as tolerated, do not stay stationary for long periods of time as it might make symptoms worse. Follow up with PCP in 1 week if symptoms do not improve. Immediate eval for chest pain, shortness of breath, fever, numbness or tingling, loss of bowel or bladder control, pain becomes severe, difficulty moving neck, back, arms or legs, dizziness, headache, or any other new or concerning symptoms arise. Patient verbalizes understanding and is agreeable to treatment plan [facility] Other Evaluation + Plan note No data available for this section General Surgery [employer] Evaluation noteNo assessment information available [facility] Work Phone: [place] general Narrative - Reported* Type Description Date Medical History Cigarette nicotine dependence [facility] Other [facility] general Narrative - Reported* Type Description Date Medical History Cigarette nicotine dependence Surgical History Problem Title : past surgical history reviewed, Problem Description : past surgical history reviewed, Problem Comment : reviewed - no changes required, Problem Status : Active, Surgical History Problem Title : surg ical procedures, hx of, Problem Description : surgical procedures, hx of, Problem Comment : none, Problem Status : Active, [facility] Other Hospital Discharge instructions No data available for this section General Surgery [facility] Progress note No data available for this section General Surgery [facility] Summary Purpose Family History No Family History Records Found No data available for this section No data available for this section No Family History Records Found Advance Directives No Advanced Directives Records Found Advance Directive Response Recorded Date/ Time Advance Directives No December 2:33pm Additional Source Comments REASON FOR VISIT (unrecogniz ed section and content) LEFT LOWER BACK PAIN, POSS M USCLE SPASMSPULLED MUSCLE IN BACKPOISON CR HE THINKS, THIGHS, GROIN, ETC Care Teams (unrecognized sec tion and content) Team Status: Active Member Role Status Dates Anne-Marie Araiza MD Primary Care Provider Active Team Status: Inactive Member Role Status Dates Anne-Marie Araiza MD Primary Care Provider Active Start: December 23, 2023 End: December 23, 2023 Neha Martinez MD FACS Attending Provider Active Start: December 23, 2023 End: December 23, 2023 Team Status: Inactive Member Role Status Dates Anne-Marie Araiza MD Primary Care Provide r, Attending Provider Active Start: January 07, 2024 End: January 07, 2024 Goals (unrecognized section and content) Goals may be documented in a n alternate section (unrecognized sect ion and content) No Status Records FoundNo Status Records Found INFORMATION SOURCE (unrecogn ized section and content) DATE CREATED AUTHOR 12/28/2023 [facility] DATE CREATED AUTHOR AUTHOR'S ORGANIZ ATION 01/22/2024 [facility] FOR RECORDS PERTAINING TO PATIENTS WHO ARE OR HAVE BEEN ENROLLED IN A CHEMICAL DEPENDENCY/SUBSTANCEABUSE PROGRAM, SOME INFORMATION MAY BE OMITTED. This clinical summary was aggregated from multiple sources. Caution should be exercised in using it in the provision of clinical care. This summary normalizes information from multiple sources, and as a consequence, information in this document may materially change the coding, format and clinical context of patient data. In addition, data may be omitted in some cases. CLINICAL DECISIONS SHOULD BE BASED ON THE PRIMARY CLINICAL RECORDS. [employer] provides no warranty or guarantee of the accuracy or completeness of information in this document.
[2024-03-02 12:06] VITALS: BP 137/84; PULSE 77; O2SAT 100
[2024-03-02] MEDS: BUPIVACAINE HCL 0.25% PF 25 MG/10 ML VIAL INJ (12:07)
[2024-03-02] MEDS: BACITRACIN OINTMENT 28.4 GM TUBE 1 APPLIC TOPICAL (12:45)
[2024-03-02 13:30] VITALS: BP 151/77; PULSE 70; O2SAT 98
== END 2024-03-02 13:39 | disposition home or self-care (01) ==
PROVIDERS: PCP Family Medicine; Visit Provider Surgery
PROC: (CPT 11401; principal; 2024-03-02 10:20)
DX: L72.0 Epidermal cyst (principal); D17.22 Benign lipomatous neoplasm of skin and subcutaneous tissue of left arm; K58.1 Irritable bowel syndrome with constipation; Z90.49 Acquired absence of other specified parts of digestive tract; F17.290 Nicotine dependence, other tobacco product, uncomplicated
CPT/HCPCS: 11401; 11422; 11443; 12031; 12041; 12051; 24076; 88304; 99999